=== PATIENT | female | born 1930 | race Caucasian/White ===

== ENCOUNTER 2017-01-14 22:44 | Emergency (ER) | payer OTHER ==
[~2017-01-14] VITALS: Ht 157.5 cm; Wt 59.1 kg
[~2017-01-14 22:44] MED LIST: ACET-1757 PO; ALBU18HF INH; ALEN70TA5 PO; ASPI-515 PO; CEFD300C37 PO; DOCU-30 PO; DONE10TA7 PO; ENOX40SY4 SQ; FERR325T20 PO; HYDR-3240 PO; LISI-167 PO; LISI2.5T PO; MECL12.5 PO; MEMA28CA PO; METO25TA35 PO; METO50TA82 PO; MIRT15TA4 PO; MULT-658 PO; NITR12SP2 SL; OMEP-110 PO; ONDA4TAB10 PO; OXYC-302 PO; PANT40TA5 PO; PARO20TA4 PO; SENN-1 PO; SIMV10TA PO; TRAM50TA2 PO; UNK BP MED PO; [UNRECOGNIZED DRUG - CODE] PO
[2017-01-14] MEDS ORDERED: MAALOX/HYOSCYAMINE/LIDOCAINE 45 ML BTL PO ONE (23:30)
[2017-01-14] MEDS ORDERED: SODIUM CHLORIDE FLUSH 10ML SYR IVF ONE (23:30)
[2017-01-14] MEDS ORDERED: MAALOX/HYOSCYAMINE/LIDOCAINE 45 ML BTL ONE (23:30)
[2017-01-14 23:31] LABS: HEMATOCRIT 39.3 % (34.6-47.8); WHITE BLOOD COUNT 9.5 x10^3/uL (3.4-10)
[2017-01-14] MEDS ORDERED: HYDR12.58 PO (23:35)
[2017-01-14] MEDS ORDERED: LISI40TA PO (23:35)
[2017-01-14] MEDS ORDERED: DOXY100T PO (23:35)
[2017-01-14 23:40] LABS: ASPARTATE AMINO TRANSFERASE 210 U/L (15-37); BLOOD UREA NITROGEN 36 mg/dL (7-18)
[2017-01-14 23:48] LABS: IS PT STATUS REG ER OR PRE ER? YES
[2017-01-15] MEDS ORDERED: SODIUM CHLORIDE 0.9%, 500ML IVBOLUS ONE
[2017-01-15 00:45] VITALS: BP 147/62
== END 2017-01-15 04:51 ==
LOC: ED 23:41
DX: R10.13 Epigastric pain (principal); R10.33 Periumbilical pain; J44.9 Chronic obstructive pulmonary disease, unspecified; E78.00 Pure hypercholesterolemia, unspecified; K21.9 Gastro-esophageal reflux disease without esophagitis; I11.9 Hypertensive heart disease without heart failure; Z87.891 Personal history of nicotine dependence
CPT/HCPCS: 36415; 74022; 74176; 80053; 83690; 84484; 85025; 93005; 96360; 99285; J7040